=== PATIENT | male | born 1990 | race Caucasian/White ===

== ENCOUNTER 2017-11-24 06:41 | Day surgery (SDC) | payer OTHER ==
[~2017-11-24 06:41] MED LIST: BUPIVAC MPF-EPI 0.5%-1:200000 30 ML VIAL.
[2017-11-24] MEDS ORDERED: MORPHINE SULFATE 4 MG/ML DISP.SYRIN. IV (07:00)
[2017-11-24] MEDS ORDERED: fentaNYL PF VIAL 100 MCG/2 ML VIAL IV ×2 (07:00)
[2017-11-24] MEDS ORDERED: LIDOCAINE 1% PF 2 ML VIAL. ID (07:00)
[2017-11-24] MEDS ORDERED: PROCHLORPERAZINE 10 MG/2 ML VIAL. IV (07:00)
[2017-11-24] MEDS ORDERED: ONDANSETRON PF 4 MG/2 ML VIAL. IV (07:00)
[2017-11-24] MEDS ORDERED: PROPOFOL 20 ML IV (07:06)
[2017-11-24] MEDS ORDERED: MIDAZOLAM HCL/PF 2 MG/2 ML VIAL. (07:06)
[2017-11-24] MEDS ORDERED: SUCCINYLCHOLINE 200 MG/10 ML VIAL. (07:06)
[2017-11-24] MEDS ORDERED: ONDANSETRON PF 4 MG/2 ML VIAL. (07:06)
[2017-11-24] MEDS ORDERED: fentaNYL PF VIAL 100 MCG/2 ML VIAL (07:08)
[2017-11-24] MEDS: IV RINGERS,LACTATED 1000ML 1,000 ML IV (07:27)
[2017-11-24] MEDS: BUPIVACAINE MPF 0.5% 30 ML VIAL. (08:13)
[2017-11-24] MEDS ORDERED: DEXAMETHASONE SOD PHOS 20 MG/5 ML VIAL. (08:18)
[2017-11-24] MEDS: HYDROcodone/APAP 5/325MG 1 TAB TABLET PO (09:23)
[2017-11-24] MEDS ORDERED: ceFAZolin 2GM PREMIX 2 GM/50 ML BAG IV (12:00)
== END 2017-11-24 09:53 | disposition home or self-care (01) ==
LOC: SURG 06:41
DX: N62 Hypertrophy of breast (principal); K08.409 Partial loss of teeth, unspecified cause, unspecified class; K21.9 Gastro-esophageal reflux disease without esophagitis; Z72.89 Other problems related to lifestyle; Z91.011 Allergy to milk products; Z79.899 Other long term (current) drug therapy; M95.4 Acquired deformity of chest and rib; Z83.49 Family history of other endocrine, nutritional and metabolic diseases; Z82.3 Family history of stroke; Z82.49 Family history of ischemic heart disease and other diseases of the circulatory system; Z81.8 Family history of other mental and behavioral disorders
CPT/HCPCS: 19120; 88305; J0330; J0690; J1100; J2250; J2405; J2704; J3010; J3490